=== PATIENT | female | born 1990 | race American Indian/Alaskan Native ===

== ENCOUNTER 2018-12-01 21:06 | Emergency (ER) | payer SELFPAY ==
--- NOTE | 2018-12-01 22:12 | Event Note ---
ED Screening Note Date of service: 12/01/18 Time: 22:08 ED Screening Note: 28 y/o female comes in for abd pain "I thinks i have alcohol poison". Reports that she had n/v. This initial assessment/diagnostic orders/clinical plan/treatment(s) is/are subject to change based on patients health status, clinical progression and re- assessment by fellow clinical providers in the ED. Further treatment and workup at subsequent clinical providers discretion. Patient/guardian urged not to elope from the ED as their condition may be serious if not clinically assessed and managed. Initial orders include:
[2018-12-01] MEDS ORDERED: KETOROLAC 30 MG/1 ML INJ IV ONE (22:37)
[2018-12-01] MEDS ORDERED: FAMOTIDINE 20 MG/2 ML INJ IV ONE (22:37)
[2018-12-01] MEDS ORDERED: ONDANSETRON 4 MG/2 ML INJ IV ONE (22:37)
[2018-12-01] MEDS ORDERED: LACTATED RINGERS 1,000 ML IV ONE (22:37)
[2018-12-01 23:24] LABS: Basophils % (Auto) 0.5 % (0.0-1.8); Eosinophils # (Auto) 0.1 K/mm3 (0.0-0.4); Eosinophils % (Auto) 2.4 % (0.0-4.3); Hematocrit 39.6 % (30.3-42.9); Lymphocytes # (Auto) 1.8 K/mm3 (1.2-5.4); Lymphocytes % (Auto) 39.5 % (13.4-35.0); Mean Corpuscular HGB Conc 33 % (30-34); Mean Corpuscular Volume 88 fl (79-97); Monocytes # (Auto) 0.6 K/mm3 (0.0-0.8); Monocytes % (Auto) 13.6 % (0.0-7.3); Platelet Count 250 K/mm3 (140-440); Red Blood Count 4.48 M/mm3 (3.65-5.03); Red Cell Distribution Width 13.1 % (13.2-15.2)
[2018-12-01 23:45] LABS: Alanine Aminotransferase 23 units/L (7-56); Albumin 4.2 g/dL (3.9-5); BUN/Creatinine Ratio 11; Blood Urea Nitrogen 8 mg/dL (7-17); Calcium 8.6 mg/dL (8.4-10.2); Hemolysis Index 8
[2018-12-02] MEDS ORDERED: THIAMINE 100 MG, FOLIC ACID 1 MG, MULTIPLE VITAMIN INJ, ADULT 10 ML in SODIUM CHLORIDE ... IV ONE (00:08)
[2018-12-02] MEDS ORDERED: DICYCLOMINE 20 MG TAB PO ONE (00:08)
[2018-12-02] MEDS ORDERED: MORPHINE 4 MG/1 ML INJ IV ONE (01:06)
[2018-12-02] MEDS ORDERED: METOCLOPRAMIDE 10 MG/2 ML INJ IV ONE (01:07)
--- NOTE | 2018-12-02 02:04 | Emergency Department Report ---
ED N/V/D HPI - General Chief complaint: Abdominal Pain Stated complaint: POSSIBLE ALCOHOL POISONING Time Seen by Provider: 12/01/18 22:07 Source: patient Mode of arrival: Ambulatory Limitations: No Limitations - History of Present Illness Initial comments: Patient is a 28-year-old female with a history of chronic call abuse who presents to the ED with nausea and vomiting and diffuse abdominal pain after heavy alcohol abuse over 12 hours ago. Patient admits to having drunk a lot of alcohol the night before and about 4 hours after she woke up she is having intractable nausea and vomiting with diffuse abdominal pain. Patient states that she is not been able to keep anything down in the last 12 hours. Patient denies dizziness, syncope, chest pain, shortness of breath, dysuria, urinary frequency and urgency, headache, fever, chills, vaginal bleeding, vaginal discharge, diarrhea, sore throat or seizures. MD complaint: nausea, vomiting, abdominal pain -: Sudden, hour(s) (12) Description of Vomiting: food contents, watery Associated Abdominal Pain: Yes (diffuse) Location: diffuse Radiation: none Severity: severe Pain Scale: 7 Quality: cramping, aching, sharp Consistency: constant Improves with: none Worsens with: none Context: alcohol abuse Associated Symptoms: denies other symptoms, loss of appetite, malaise, nausea/vomiting. denies: myalgias, chest pain, cough, diaphoresis, fever/chills, headaches, rash, dysuria, shortness of breath, syncope, weakness - Related Data Previous Rx's Medication Instructions Recorded Last Taken Type Dicyclomine [Bentyl] 20 mg PO Q6H PRN #24 tablet 12/02/18 Unknown Rx Ondansetron [Zofran Odt] 4 mg PO Q6HR PRN #20 tab.rapdis 12/02/18 Unknown Rx raNITIdine HCl [Zantac] 150 mg PO Q12H #20 tablet 12/02/18 Unknown Rx Allergies Allergy/AdvReac Type Severity Reaction Status Date / Time hydrocodone Allergy Hives Verified 12/01/18 22:10 ED Review of Systems ROS: Stated complaint: POSSIBLE ALCOHOL POISONING Other details as noted in HPI Constitutional: denies: chills, fever Eyes: denies: eye pain, eye discharge, vision change ENT: denies: ear pain, throat pain Respiratory: denies: cough, shortness of breath, wheezing Cardiovascular: denies: chest pain, palpitations Endocrine: no symptoms reported Gastrointestinal: abdominal pain, nausea, vomiting. denies: diarrhea, constipation, hematemesis Genitourinary: denies: urgency, dysuria, discharge Musculoskeletal: denies: back pain, joint swelling, arthralgia Skin: denies: rash, lesions Neurological: denies: headache, weakness, paresthesias Psychiatric: denies: anxiety, depression Hematological/Lymphatic: denies: easy bleeding, easy bruising ED Past Medical Hx - Past Medical History Previous Medical History?: No - Surgical History Hx Cholecystectomy: Yes Hx Appendectomy: Yes - Social History Smoking Status: Never Smoker Substance Use Type: Alcohol, Marijuana - Medications Home Medications: Home Medications Medication Instructions Recorded Confirmed Last Taken Type Dicyclomine [Bentyl] 20 mg PO Q6H PRN #24 tablet 12/02/18 Unknown Rx Ondansetron [Zofran Odt] 4 mg PO Q6HR PRN #20 tab.rapdis 12/02/18 Unknown Rx raNITIdine HCl [Zantac] 150 mg PO Q12H #20 tablet 12/02/18 Unknown Rx ED Physical Exam - General Limitations: No Limitations General appearance: alert, in no apparent distress - Head Head exam: Present: atraumatic, normocephalic, normal inspection - Eye Eye exam: Present: normal appearance, PERRL, EOMI Pupils: Present: normal accommodation - ENT ENT exam: Present: normal exam, normal orophraynx, mucous membranes moist, TM's normal bilaterally, normal external ear exam - Neck Neck exam: Present: normal inspection, full ROM - Respiratory Respiratory exam: Present: normal lung sounds bilaterally. Absent: respiratory distress, wheezes, rales, rhonchi, chest wall tenderness - Cardiovascular Cardiovascular Exam: Present: regular rate, normal rhythm, normal heart sounds. Absent: systolic murmur, diastolic murmur, rubs, gallop - GI/Abdominal GI/Abdominal exam: Present: soft, tenderness (diffusely tender, no guarding or rebound), normal bowel sounds. Absent: guarding, rebound, hyperactive bowel sounds, hypoactive bowel sounds - Extremities Exam Extremities exam: Present: normal inspection, full ROM, normal capillary refill - Back Exam Back exam: Present: normal inspection, full ROM. Absent: CVA tenderness (L), muscle spasm, vertebral tenderness - Neurological Exam Neurological exam: Present: alert, oriented X3, CN II-XII intact, normal gait, reflexes normal - Psychiatric Psychiatric exam: Present: normal affect, normal mood - Skin Skin exam: Present: warm, dry, intact, normal color. Absent: rash ED Course Vital Signs 12/01/18 12/01/18 21:10 23:15 Temperature 98.6 F Pulse Rate 69 Respiratory 20 16 Rate Blood Pressure 127/83 O2 Sat by Pulse 97 Oximetry - Reevaluation(s) Reevaluation #1: 12/02/18 02:02 This is a 28-year-old female with a history of chronic call abuse who presents to the ED with nausea and vomiting and diffuse abdominal pain after heavy alcohol abuse over 12 hours ago. In the ED, patient is alert and oriented 3 and is not in distress but appears generally weakened and fatigued. Lab test results were reviewed and are all unremarkable and nonactionable. Urinalysis is pending. Blood alcohol level is negative. Patient was treated for pain, also given antiemetics and normal saline IV fluids as well as thiamine solution. On reevaluation, patient's pain, nausea and vomiting are resolved and patient is fully interactive during the reevaluation. Patient was discharged home on antiemetics, antacids and pain medications and advised to follow-up with her primary care physician in 7-10 days for reevaluation. Patient was advised to consider alcohol rehabilitation to help with quitting alcohol abuse. ED Medical Decision Making - Lab Data Result diagrams: 12/01/18 22:27 12/01/18 22:27 - Medical Decision Making This is a 28-year-old female with a history of chronic call abuse who presents to the ED with nausea and vomiting and diffuse abdominal pain after heavy alcohol abuse over 12 hours ago. In the ED, patient is alert and oriented 3 and is not in distress but appears generally weakened and fatigued. Lab test results were reviewed and are all unremarkable and nonactionable. Urin alysis is pending. Blood alcohol level is negative. Patient was treated for pain, also given antiemetics and normal saline IV fluids as well as thiamine solution. On reevaluation, patient's pain, nausea and vomiting are resolved and patient is fully interactive during the reevaluation. Patient was discharged home on antiemetics, antacids and pain medications and advised to follow-up with her primary care physician in 7-10 days for reevaluation. Patient was advised to consider alcohol rehabilitation to help with quitting alcohol abuse. - Differential Diagnosis abdominal pain; vomiting; alcohol abuse; dehydration; alcoholic gastritis Critical care attestation.: If time is entered above; I have spent that time in minutes in the direct care of this critically ill patient, excluding procedure time. ED Disposition Clinical Impression: Nausea and vomiting in adult patient, Alcohol abuse Abdominal pain Qualifiers: Abdominal location: generalized Qualified Code(s): R10.84 - Generalized abdominal pain Alcoholic gastritis without bleeding Qualifiers: Chronicity: acute Qualified Code(s): K29.20 - Alcoholic gastritis without bleeding Disposition: TO HOME OR SELFCARE Is pt being admited?: No Does the pt Need Aspirin: No Condition: Stable Instructions: Abuse of Alcohol (ED), Acute Nausea and Vomiting (ED), Abdominal Pain (ED) Additional Instructions: Maintain a clear liquid diet for 12-24 hours, drink plenty of fluids, take medication and follow-up with your primary care physician in 5-7 days for reevaluation. Return to the ED immediately if symptoms get worse. Consider al coholic rehabilitation to control the habit. Prescriptions: Dicyclomine [Bentyl] 20 mg PO Q6H PRN #24 tablet PRN Reason: ABDOMINAL PAIN raNITIdine HCl [Zantac] 150 mg PO Q12H #20 tablet Ondansetron [Zofran Odt] 4 mg PO Q6HR PRN #20 tab.rapdis PRN Reason: Nausea Referrals: PRIMARY CARE, [Primary Care Provider] - 3-5 Days Time of Disposition: 02:10 Print Language: BELARUSIAN
[2018-12-02 03:21] LABS: Bilirubin,Urine NEG (Negative); Blood,Urine NEG (Negative); Color,Urine Yellow (Yellow); Mucus,Urine FEW /HPF; Protein,Urine <15 mg/dL mg/dL (Negative); Urobilinogen,Urine < 2.0 mg/dL (<2.0)
[2018-12-02 04:03] VITALS: BP 111/62
== END 2018-12-02 04:03 | disposition home or self-care (01) ==
LOC: ED 21:06
DX: K29.20 Alcoholic gastritis without bleeding (principal); R11.2 Nausea with vomiting, unspecified; F10.10 Alcohol abuse, uncomplicated; Z88.5 Allergy status to narcotic agent; Z79.899 Other long term (current) drug therapy; Z90.49 Acquired absence of other specified parts of digestive tract; F12.10 Cannabis abuse, uncomplicated
CPT/HCPCS: 36415; 80053; 80307; 81001; 83690; 84703; 85025; 96361; 96365; 96375; 99283; J1885; J2405; J3411; J7030; J7120; 80320; G0480